=== PATIENT | female | born 1980 | race Caucasian/White ===

== ENCOUNTER 2018-11-04 06:38 | Day surgery (SDC) | payer OTHER, SELFPAY ==
[2018-10-29 14:13] VITALS: BMI 26.6
[2018-11-04] VITALS (11 sets, daily range): BP systolic 93–119; BP diastolic 58–75; PULSE 50–73; RESP 11–18; TEMP 36.3–37.4; O2SAT 96–100; BMI 25.2
--- NOTE | 2018-11-04 | DI.MG.S_ITS ---
SPECIMEN: 11/04/2018 CLINICAL: Left breast specimen. Correlation is made to exams dated: 09/04/2018 specimen, 09/04/2018 stereotactic biopsy - [facility], 11/04/2018 [facility], and 09/04/2018 mammogram [facility]. The specimen contains the targeted ribbon clip. IMPRESSION: SPECIMEN The specimen contains the targeted ribbon clip at the site of biopsy proven DCIS. A follow-up mammogram of the left breast in 6 months is recommended to demonstrate stability of the surgical site. This exam was interpreted at Station ID: [id number]. Ken Lopez M.D. slc/:11/04/2018 11:01:18
--- NOTE | 2018-11-04 | PATH_ITS ---
[facility] Accession Number: [id number] . 01 Material submitted: . breast - LEFT BREAST MASS . 01 Clinical history: . SHORT STITCH ANTERIOR, LONG STITCH SUPERIOR . 02 Diagnosis: Left Breast Mass: CAP TEMPLATE . Ductal carcinoma in-situ of the breast with the following features: Procedure: Excision Specimen laterality: Left Tumor site: 2 o'clock anterior (per previous needle core biopsy report) Size: 2 mm in resected specimen; (2 mm greatest length reported in previous needle core biopsy; multiple core fragments involved). Histologic type: Ductal carcinoma in situ Architectural pattern: Comedo pattern Nuclear grade: Grade 2/intermediate Necrosis: Not identified. Margins: Uninvolved by DCIS Distance from closest margin (millimeters): 5 mm. Closest margin: Lateral Distance from other margins: Superior: 7 mm. Anterior: Greater than 10 mm. Posterior: Greater than 10 mm. Inferior: Greater than 10 mm. Medial: Greater than 10 mm. Regional lymph nodes: No lymph nodes submitted or found. . Pathologic stage (AJCC 8th Edition): pTis(DCIS) pNX . Hormone receptors: Estrogen receptor: Positive (Greater than 99%, strong intensity staining). . Other: Microcalcifications are present in non-neoplastic tissue. Changes consistent with previous instrumentation. Fibroadenomatous and fibrocystic changes consisting of cystic dilatation of terminal ductules, stromal fibrosis, ductal hyperplasia without atypia, apocrine metaplasia, and adenosis. BFI/11/08/2018 . 02 Comment: This patient's previous needle core biopsy report was reviewed ([facility] [id number]; 11/04/2018). . Results discussed with Dr. Ribera on 11-08-18 at approximately 2:20 p.m. . 02 Electronically signed: . Connie Duran MD, Pathologist NPI- [id number] . 01 Gross description: . Received: In formalin, labeled left breast mass, short stitch anterior, long stitch superior. Specimen: One partial mastectomy. Weight: 24 grams. Measurement: 4.1 cm anterior to posterior, 1.8 cm medial to lateral, and 3.7 cm superior to inferior. Skin ellipse: Absent. Wire: Absent. Margins: Oriented by surgeon with short anterior suture, long superior suture, and inked as follows: posterior=black; anterior=purple; superior=blue; inferior=green; medial=yellow; lateral=orange. Sliced: Anterior to posterior into 14 slices. Lesions: No definitive nodules, masses or lesions are grossly identified. The entire specimen is diffusely fibrous with sporadic irregularly firm gritty areas. Slices involved: 1-14. Biopsy site: Present. No biopsy marker is identified. Distance to margins: This fibrous area is less than 0.1 cm from all margins except for the superior which is 1.1 cm away. Other: The surrounding parenchyma is yellow lobulated unremarkable adipose tissue. Fixation time: The specimen was placed in formalin on 11/04/2018 with no time given. The approximate total fixation time is calculated to be 54 hours 30 minutes. Sections: A1: Slice 1, anterior end of specimen, perpendicular. A2: Slice 2. A3-A4: Slice 3, bisected and submitted superior to inferior. A5-A6: Slice 4, bisected and submitted superior to inferior. A7-A8: Slice 5, bisected and submitted superior to inferior. A9-A10: Slice 6, bisected and submitted superior to inferior. A11-A12: Slice 7, bisected and submitted superior to inferior. A13-A14: Slice 8, bisected and submitted superior to inferior. A15-A16: Slice 9, bisected and submitted superior to inferior. A17-A18: Slice 10, bisected and submitted superior to inferior. A19-A20: Slice 11, bisected and submitted superior to inferior. A21-A22: Slice 12, bisected and submitted superior to inferior. A23-A24: Slice 13, bisected and submitted superior to inferior. A25: Slice 14, posterior end of specimen, perpendicular. Specimen is entirely submitted. ([id number]) /MRV . 02 Microscopic: . A. An immunohistochemical stain was performed to evaluate for estrogen receptor on block A11 and showed strong, diffuse nuclear positivity in the region of interest. The control stain shows appropriate reactivity. . A. An immunohistochemical stain was performed to evaluate for CK 5/6 on block A11 and shows diminished/absent staining in the region of interest. The control stain shows appropriate reactivity. . Immunohistochemistry results support a dianosis of ductal carcinoma in situ. . * This test was developed and its performance characteristics determined by [employer]. It has not been cleared or approved by the U.S. Food and Drug Administration. The FDA has determined that such clearance or approval is not necessary. This test is used for clinical purposes. It should not be regarded as investigational or for research. . 02 Pathologist provided ICD-10: D05.10 . 02 CPT . 981398, J16899, O02431 Performed at: 01 [facility] [address] [place] [address], [place], [place] [id number] MD Sincere Luna MD Phone: [phone] Performed at: 02 [facility] [place] [address] [place] [id number] MD Caprice oMlina MD Phone: [phone]
--- NOTE | 2018-11-04 | DI.MG.S_ITS ---
WIRE LOCALIZATION LEFT BREAST WITH POST DIGITAL MAMMOGRAPHIC IMAGIN11/04/2018 CLINICAL: DCIS. Correlation is made to exams dated: 09/04/2018 mammogram, 09/04/2018 stereotactic biopsy - [facility], and 07/19/2018 mammogram - [facility]. A wire localization was performed for the ribbon marker clip (corresponding to the biospy proven DCIS) located in the left breast at 1-2 o'clock middle depth. The skin was prepped in the usual manner. A J-hook wire was inserted adjacent to the marker. Post placement digital mammographic imaging demonstrates the distal tip rests anterior to the ribbon marker on the lateral and craniocadaul projections. IMPRESSION: WIRE LOCALIZATION Wire localization for the marker clip in the left breast at 1-2 o'clock middle depth was successful. Complication with this procedure was a vasovagal reaction. The patient was appropriately treated. A surgical excision is recommended and will immediately follow. Follow-up with ACR/ACS guidelines. This exam was interpreted at Station ID: [id number]. Ken Lopez M.D. slc/:11/04/2018 08:52:21
[2018-11-04] MEDS: LACTATED RINGERS 1,000 ML 42 ML IV (08:50)
--- NOTE | 2018-11-04 08:50 | PM.PREOP ---
Pre-operative Note Interval Note History & Physical reviewed/Exam performed by Physician: Yes Changes to H&P: No H&P completed within 30 days and has changed as indicated here:: see out patient visit 10/22 for H&P
--- NOTE | 2018-11-04 09:02 | SUR.PREOP ---
Returned from DI, anxious but calm, spoken to by anesthesia. Versed 2 mg IV given by anesthesia. Patient on continuous pulse ox; HR 43, sat 100%. Call light within reach.
--- NOTE | 2018-11-04 09:15 | SUR.PREOP ---
Sleeping, RA sat 99%, HR 46. Resp unlabored.
[2018-11-04] MEDS: CEFAZOLIN 2 GM/100 ML FROZ.PIGGY IV (09:30)
--- NOTE | 2018-11-04 09:51 | SUR.OPER ---
Supine on padded OR bed, head on pillow, arms secured on padded arm boards at <90 degrees abduction, legs uncrossed, safety belt at thigh, tape over blanket over lower legs.
[2018-11-04] MEDS: BUPIVACAINE 0.5% (PF) VIAL 30 ML INJ (09:57)
[2018-11-04] MEDS: OXYCODONE/ACETAMINOPHEN 5/325 TABLET 1 TAB PO (11:00)
[2018-11-04] MEDS: fentaNYL 100 MCG/2 ML INJ 50 MCG IV (11:06)
--- NOTE | 2018-11-04 11:50 | P.OP_ITS ---
Operative Date/Time/Diagnoses Date of procedure: 11/04/18 Time of procedure: 10:29 Pre-op diagnosis: DCIS left breast Post-op diagnosis: same Procedure & Clinicians Procedure: He localization lumpectomy Same procedure as scheduled: Yes Indications: DCIS based on minimally invasive biopsy Surgeon: Clint Ribera Click Yes if Unassisted: Yes Anesthesia Type: General Operative Notes Findings: Clip in the specimen. Closure Type: primary Specimen(s): other (Breast tissue) Prosthetic devices, grafts, tissues, transplants, or devices: None Estimated Blood Loss (mL): 20 Blood products transfused: none Procedure in detail: The patient is placed supine on the operating room table after having needle localization performed in the radiology suite. She was prepped and draped in the usual fashion. Care was taken not to move the needle. Local anesthetic was infiltrated and a curvilinear incision made at the edge of the nipple-areolar complex. It was carried into the subcu. Using the needle as a guide I dissected all around the tissue where the Stafford was anticipated to be. I delivered the needle into the wound then. With manipulation unfortunately the needle came out but I had already created the margins I intended with the needle in place. I amputated the tissue posteriorly. It was submitted for specimen contained the marking clip. Meticulous hemostasis was achieved and the wound was irrigated. Clips were placed to brett the cavity. The cavity was partially closed with interrupted 3 0 Vicryl. The subcu was closed with interrupted 3 0 Vicryl and skin was closed running 4 0 Vicryl subcuticular stitch and Steri- Strips. Dressing was applied patient was awakened and taken recovery area in good condition Complications: none Condition: stable Disposition: PACU
== END 2018-11-04 12:16 | disposition home or self-care (01) ==
PROVIDERS: PCP General Practice; Visit Provider Specialist
PROC: (CPT 19301; principal; 2018-11-04 09:00)
PROC: (CPT 19301; 2018-11-04 09:00)
DX: D05.12 Intraductal carcinoma in situ of left breast (principal); Z80.3 Family history of malignant neoplasm of breast
CPT/HCPCS: 19301; 19281; 76098; 88307; 88341; 88342; J0690; J1100; J2250; J2405; J2704; J3010

== ENCOUNTER → 2018-11-27 11:20 | Oncology outpatient (ONC) | payer OTHER, SELFPAY ==
[2018-10-16 11:19] VITALS: BP 103/68; PULSE 55; RESP 18; TEMP 36.4; O2SAT 100
--- NOTE | 2018-10-16 12:16 | P.CONONC_ITS ---
History of Present Illness - Data of Consult Consult date: 10/16/18 Primary Care Provider: Rogelio Islas - Consult Narrative Narrative: Diagnosis: DCIS History of present illness: Renetta Spence is a 37 year old female who is referred for further evaluation of a newly diagnosed DCIS. Patient reports that her mother was recently diagnosed with breast cancer. She also had an aunt who had breast cancer. Because of this, she requested a mammogram and ultrasound. She could not feel any lump. On the ultrasound, she was found to have a 1.5 x 0.9 cm mass in the left breast at the 1 o'clock position. A biopsy of that lesion showed DCIS. She is scheduled to meet with a surgeon next week. Today, she is without any specific complaint. She has not had any persistent aches or pains. No shortness of breath cough. No GI complaints. She tells me that she has had prior mammograms but no prior abnormalities. She has not used hormonal control but has had an IUD without hormones. She has never been . She does not smoke. Her past medical history is otherwise unremarkable. She is currently not on any medications. Family history is notable for her mother and aunt having had breast cancer. There is no other family history of malignancy. 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 She does not smoke. She does have a history of alcohol use but is not currently drinking. CC: Nando Harris MD Review of Systems Constitutional: able to conduct usual activities Cardiovascular: no chest pain Respiratory: no shortness of breath Gastrointestinal: no abdominal pain Musculoskeletal: no pain Integumentary (breast): no lumps Endocrine: no hormone therapy Exam Vital signs: Vital Signs Temp Pulse Resp BP Pulse Ox 10/16/18 11:19 97.6 F 55 L 18 103/68 100 Intake and Output 10/15/18 10/16/18 10/16/18 23:59 07:59 15:59 Other: Weight 73.3 kg Patient Weight 10/16/18 23:59 Weight 73.3 kg - Constitutional positive no acute distress, positive average body habitus Comments: She is not further examined. Assessment and Plan (1) DCIS (ductal carcinoma in situ) Current visit: Yes Status: Acute Patient is a 37-year-old woman with a newly diagnosed DCIS. Explained that the usual treatment for this was surgery. This could either be a lumpectomy followed by radiation or mastectomy. Long-term outcomes or equivalent with either approach. She is favoring a lumpectomy. She did have questions regarding the role of sentinel lymph node biopsy. I explained that this was frequently done at the time of surgery in case an invasive component was found along with the DCIS. The risk for complications for sentinel node or low. I explained that if she elected not to have a sentinel node, she may require a 2nd surgery later on if an invasive component is found to her DCIS. She also had questions regarding cosmetic outcome after lumpectomy that I think would be better addressed by her surgeon. We did briefly discuss radiation. She had questions regarding a potential to xicities which include primarily skin reaction. There be a lower risk for pulmonary toxicity. We also did discuss the role of hormone therapy. For patients who have DCIS, antiestrogen therapy such as tamoxifen can reduce the risk for recurrence of either DCIS or invasive cancer. However, there is no difference in overall survival. This is due primarily to the low risk of from breast cancer in the setting. Tamoxifen does carry risk for thrombotic complications, abnormal uterine bleeding and uterine cancer. She is inclined at this point not to pursue hormone therapy. If however, an invasive component is found to her cancer, we may need to reconsider. She will return to clinic here in about a month for follow-up. Hopefully by that time she will have completed her surgery and her final pathology will be available.
--- NOTE | 2018-10-21 09:10 | ONC.MSW ---
Late Entry: Visit 10/16/18 Description: Met with pt to introduce myself as the ONC DIRECTOR OF RESTAURANT/THOMAS, provided services card and assess immediate needs. Pt presents as very guarded, offered little eye contact and was mostly dismissive of this DIRECTOR OF RESTAURANT. Discussed only briefly the availability of support services, the [facility], and the [facility] [employer] [facility]. Pt expresses no immediate needs at this time, and refuses to offer any information re: her support system or coping with this new diagnosis. She is already scheduled to consult with [facility]. No further DIRECTOR OF RESTAURANT intervention or navigation needs warranted at this time.
[2018-11-27 11:30] VITALS: BP 121/74; PULSE 60; RESP 18; TEMP 37; O2SAT 97
--- NOTE | 2018-11-27 12:02 | ONC.PN ---
PN -Subjective Interval history: Diagnosis: DCIS, ER positive Previous treatment: 1. Lumpectomy in October 2018 Interval history: The patient is a 37-year-old woman who returns today for follow-up. Because of family history for breast cancer, she was referred for a mammogram. She was found to have a 1.5 cm abnormality in the left breast. Needle biopsy showed DCIS. She has undergone lumpectomy in October. Pathology on that specimen showed only 2 mm of residual DCIS. It was strongly ER positive. She has been recovering well. She is not having any pain. Appetite and energy level have been good. No shortness of breath or cough. Bowels are moving normally. She does have an appointment next week with Radiation Oncology. She is not currently on any medications. Home Medications and Allergies Home Medications Medication Instructions Recorded Confirmed Type cranberry conc-ascorbic acid 1 cap PO DAILY 11/27/18 11/27/18 History [Cranberry Urinary Comfort] Allergies Allergy/AdvReac Type Severity Reaction Status Date / Time No Known Drug Allergies Allergy Verified 11/13/18 09:24 Exam Vital signs: Vital Signs Temp Pulse Resp BP Pulse Ox 11/27/18 11:30 98.6 F 60 18 121/74 97 Intake and Output 11/26/18 11/27/18 11/27/18 23:59 07:59 15:59 Other: Weight 78.5 kg Patient Weight 11/27/18 23:59 Weight 78.5 kg - Constitutional positive no acute distress, positive average body habitus Comments: She is not further examined. Assessment and Plan (1) DCIS (ductal carcinoma in situ) Current visit: Yes Status: Acute Patient is a 37-year-old woman with a newly diagnosed DCIS. She has completed her surgical therapy. She is recovering well. She will meet with Radiation Oncology next week. Today, review data regarding the role of adjuvant hormone therapy in reducing the risk for subsequent DCIS and invasive cancer. I pointed out that the tamoxifen did reduce that risk by approximately half. However, there is no difference in overall mortality and her risk for breast cancer is minimal. Side effects of tamoxifen reviewed again. This include primarily hot flashes, irritability and mood changes, irregular periods. There also is a risk for thrombotic complications as well as risk for endometrial cancer. She does not feel that the benefit of tamoxifen as worth the risk for potential side effects and has elected not to pursue any hormone therapy. She will go ahead with radiation. She will require a regular breast exam and mammogram. She prefers to do this with her primary physician. I have not scheduled a follow-up appointment for her but would be happy to see her again in the future should the need arise.
== END ==
PROVIDERS: PCP General Practice
DX: D05.12 Intraductal carcinoma in situ of left breast (principal); Z80.3 Family history of malignant neoplasm of breast
CPT/HCPCS: 99203; 99213; 99214

== ENCOUNTER → 2019-08-29 09:19 | Outpatient (CLI) | payer OTHER, SELFPAY ==
--- NOTE | 2019-08-29 | DI.US.S_ITS ---
ULTRASOUND OF LEFT BREAST AND AXILLA: 08/29/2019 CLINICAL: ABN Mammo. Comparison is made to exams dated: 08/29/2019 mammogram - [facility], 09/04/2018 ultrasound biopsy, 08/23/2018 ultrasound - [facility], 07/19/2018 mammogram, 07/19/2018 ultrasound, and 07/10/2018 mammogram - [facility]. Color flow and real-time ultrasound of the left breast axilla were performed. Ko scale images of the real-time examination were reviewed. There is a 0.9 cm x 0.8 cm x 0.7 cm oval lymph node with a circumscribed margin in the left axillary tail. This oval lymph node displays no posterior acoustic shadowing or enhancement. This correlates with mammography findings. There are related micro calcifications. Color flow imaging demonstrates that there is vascularity present. Cortical thickness measures 0.24 cm and does not appear thickened. This lymph node appeared more irregular on outside axillary US 07/19/2018. IMPRESSION: SUSPICIOUS OF MALIGNANCY The persistent 0.9 cm oval lymph node with microcalcifications in the left axillary tail which is at a low suspicion for malignancy. An ultrasound guided biopsy is recommended. Exam findings and recommendation were discussed with the patient over the phone with Dr. Lopez. The lymph node is within normal limits sonographically, however, the calcifications seen on mammogram are suspicious in this patient who recently underwent lumpectomy for DCIS in the left breast. [place] lymph node was not removed and no prior lymph node biopsy was preformed. No additional nodes seen with microcalcifications. The patient does report tattoos on the left side of her body. Note: Patient was also recommended left breast diagnostic mammogram for separate area of probably benign grouped calcifications. Exam findings also discussed with Dr. Johnson, Aviation medicine, [facility]. This exam was interpreted at Station ID: [id number]. Electronically Signed By: Ken Lopez M.D. [facility]/:08/29/2019 11:41:22 letter sent: Biopsy Required Ultrasound BI-RADS: 4a Low suspicion for malignancy
--- NOTE | 2019-08-29 | DI.MG.S_ITS ---
BILATERAL DIGITAL DIAGNOSTIC MAMMOGRAM 3D/2D POST LUMPECTOMY: 08/29/2019 CLINICAL: History of breast cancer. Comparison is made to exams dated: 07/19/2018 mammogram, 07/10/2018 mammogram - [facility], 11/04/2018 [facility], 09/04/2018 mammogram, 09/04/2018 ultrasound biopsy, and 08/23/2018 ultrasound - [facility]. The tissue of both breasts is heterogeneously dense. This may lower the sensitivity of mammography. There is a 0.5 cm round lymph node with grouped heterogeneous calcifications in the left axillary tail. This is not significantly changed. There also are small stable grouped heterogeneous calcifications in the left breast central to the nipple middle depth. Post surgical finding in the left breast. Additional biopsy clip is present in the left breast. No other significant masses, calcifications, or other findings are seen in either breast. IMPRESSION: INCOMPLETE: NEEDS ADDITIONAL IMAGING EVALUATION 1) The 0.5 cm round lymph node in the left axillary tail is indeterminate. -A targeted ultrasound is recommended and will immediately follow. 2) The stable grouped heterogeneous calcifications in the left breast central to the nipple middle depth are probably benign. -A follow-up left breast diagnostic mammogram in 6 months is recommended to demonstrate continued stability. This exam was interpreted at Station ID: [id number]. NOTE: For mammograms, a report in lay terms will be sent to the patient. Approximately 15% of breast malignancies will not be visualized mammographically. In the management of a palpable breast mass, a negative mammogram must not discourage biopsy of a clinically suspicious lesion. Electronically Signed By: Ken Lopez M.D. [facility]/:08/29/2019 11:39:52 ACR BI-RADS Category 0: Incomplete [id number]
== END ==
PROVIDERS: PCP General Practice; Referring Provider General Practice; Visit Provider General Practice
DX: R92.8 Other abnormal and inconclusive findings on diagnostic imaging of breast (principal); R92.1 Mammographic calcification found on diagnostic imaging of breast; Z85.3 Personal history of malignant neoplasm of breast
CPT/HCPCS: 76642; 77066; G0279

== ENCOUNTER → 2022-12-01 08:45 | Outpatient (CLI) | payer OTHER, SELFPAY ==
--- NOTE | 2022-12-01 | DI.US.S_ITS ---
ULTRASOUND OF LEFT BREAST AND AXILLA: 12/01/2022 CLINICAL: Patient returns today to evaluate a focal asymmetry in the left axilla. Comparison is made to exams dated: 12/01/2022 mammogram, 08/29/2019 ultrasound, 08/29/2019 mammogram, 11/04/2018 specimen, 11/04/2018 [facility], and 09/04/2018 specimen - [facility]. Color flow and real-time ultrasound of the left breast axilla were performed. Ko scale images of the real-time examination were reviewed. There is a 0.9 cm x 0.2 cm x 0.4 cm oval lymph node with a circumscribed margin in the left axilla. This oval lymph node displays fatty hilum and no posterior acoustic shadowing or enhancement. This abnormality is not significantly changed and correlates with stable mammography findings. Color flow imaging demonstrates that there is vascularity present. No significant abnormalities were seen sonographically in the left axilla. IMPRESSION: BENIGN There is no sonographic evidence of malignancy. The 0.9 cm x 0.2 cm x 0.4 cm oval lymph node is benign as it has demonstrated two years of stability. A 1 year screening mammogram is recommended. Findings and recommendations were conveyed to the patient during today's evaluation. This exam was interpreted at Station ID: [id number]. Electronically Signed By: Gavino mosley/:12/01/2022 13:24:37 letter sent: Normal Exam Ultrasound BI-RADS: 2 Benign
--- NOTE | 2022-12-01 | DI.MG.S_ITS ---
BILATERAL DIGITAL DIAGNOSTIC MAMMOGRAM 3D/2D: 12/01/2022 CLINICAL: Patient returns for late 6 month follow up on left breast for calcifications. Due for Bilateral routine. History of Left breast cancer. Comparison is made to exams dated: 08/29/2019 mammogram - [facility], 07/19/2018 mammogram, and 07/10/2018 mammogram - [facility]. Both breasts are heterogeneously dense, which may obscure small masses (category c / 51-75% glandular tissue). The left breast has post-operative findings of partial mastectomy. There is a stable oval lymph node with grouped heterogeneous calcifications in the left axilla. This is seen in additional views. There also are stable grouped heterogeneous calcifications in the left breast central to the nipple middle depth. No other significant masses, calcifications, or other findings are seen in either breast. IMPRESSION: INCOMPLETE: NEEDS ADDITIONAL IMAGING EVALUATION The stable oval lymph node in the left axilla is indeterminate. An ultrasound is recommended for further evaluation and is scheduled to immediately follow this examination. This exam was interpreted at Station ID: [id number]. NOTE: For mammograms, a report in lay terms will be sent to the patient. Approximately 15% of breast malignancies will not be visualized mammographically. In the management of a palpable breast mass, a negative mammogram must not discourage biopsy of a clinically suspicious lesion. Electronically Signed By: Gavino Briscoe M.D. [facility]/:12/01/2022 12:48:35 ACR BI-RADS Category 0: Incomplete [id number]
== END ==
PROVIDERS: PCP Physician Assistant; Referring Provider Physician Assistant; Visit Provider Physician Assistant
DX: C50.912 Malignant neoplasm of unspecified site of left female breast (principal); R92.8 Other abnormal and inconclusive findings on diagnostic imaging of breast
CPT/HCPCS: 76882; 77066; G0279